=== PATIENT | male | born 1995 | race Caucasian/White ===

== ENCOUNTER → 2018-03-09 | Outpatient (REF) | payer BC ==
[~2018-03-09] MED LIST: ABX FOR ACNE PO
[2018-03-09 14:22] LABS: PLATELET COUNT, AUTOMATED 232 K/uL (150-450)
== END ==
PROVIDERS: ATTEND Physician Assistant Medical
DX: R10.9 Unspecified abdominal pain (principal); R19.7 Diarrhea, unspecified
CPT/HCPCS: 82040; 82247; 82310; 82374; 82435; 82565; 82947; 84075; 84132; 84155; 84295; 84450; 84460; 84520; 85025

== ENCOUNTER 2018-03-13 13:32 | Emergency (ER) | payer BC ==
[2018-03-13 13:36] VITALS: BP 113/65
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
--- NOTE | 2018-03-13 14:37 | RADIOLOGY IMAGING REPORT ---
FACILITY: [facility] [place] PATIENT NAME: Elmer Neil : 1995 MR: [id number] V: [id number] EXAM DATE: ORDERING PHYSICIAN: JORDON ALEXANDER TECHNOLOGIST: Location: [facility] [place] Patient: Elmer Neil : 1995 Visit/Account:[id number] Date of Sevice: 03/13/2018 EXAMINATION: Left wrist 3 views HISTORY: Pain. COMPARISON: None. FINDINGS: No evidence of acute fracture or dislocation about the left wrist. Normal alignment. Joint spaces a re preserved. Soft tissues are unremarkable. IMPRESSION: Negative left wrist. Report Dictated By: Felix Signh MD at 03/13/2018 2:32 PM Report E-Signed By: Felix Singh MD at 03/13/2018 2:33 PM WSN:[id number]
== END 2018-03-13 15:07 | disposition home or self-care (01) ==
LOC: ER 13:39
DX: S63.502A Unspecified sprain of left wrist, initial encounter (principal); X58.XXXA Exposure to other specified factors, initial encounter
CPT/HCPCS: 99284

== ENCOUNTER 2018-04-02 07:46 | Emergency (ER) | payer BC ==
[2018-04-02 07:49] VITALS: BP 102/42
--- NOTE | 2018-04-02 07:51 | ER Report ---
History and Physical Time Seen By MD: 07:51 Hx. of Stated Complaint: INJURED LEFT WRIST 3 WEEKS AGO - REPORTS PAIN IS STILL PRESENT AND HAS NOT BEEN ABLE TO FOLLOW UP WITH ORTHO HPI/ROS CHIEF COMPLAINT: wrist pain, and hip pain. HISTORY OF PRESENT ILLNESS: This is a 23 year old male. He had a wrist injury of left wrist about 3 weeks ago. Still with pain despite using a splint. Went to orthopedic surgery, but his [place] insurance will not cover anything out here in [place]. He was told that if his wrist did not get better, then having an MRI would be the next step. He will not be returning home to [place] till July. He is unable to see physical therapy or other providers because of the insurance problems. He is in [facility], and increased activity has been causing increased problems. Wrist sometimes has numbness in the ulnar side and 5th finger. Has pain with extremes of flexion or extension. Having some pain in the right hip flexors from increased running recently and was wondering what could be done for that. No fevers or chills. No problems with bowel or bladder function. No rashes or bruising. Allergies: Coded Allergies: No Known Drug Allergies (Unverified , 04/02/18) Home Meds No Active Prescriptions or Reported Meds Reviewed Nurses Notes: Yes Hx Smoking: No Hx Substance Use Disorder: No Constitutional Vital Sign - Last 24 Hours 04/02/18 07:49 Temp 98.6 Pulse 76 Resp 18 B/P (MAP) 102/42 Pulse Ox 94 O2 Delivery Room Air Physical Exam General appearance: alert, no distress. left wrist: There is no asymmetry. There is no significant swelling. There is no obvious deformity. No tenderness over the anatomic snuff box. No tenderness over the ulnar styloid. No tenderness over the metacarpals. Pain mainly with range of motion Hips have some pain in right hip flexors and somewhat into posterior hip muscles. No pain in the leg. Neurologic exam: The patient has normal sensation distal to the injury. Active range of motion is intact, but with pain with wrist motion. No weakness noted. Vascular exam: Normal pulses and capillary refill. Skin: No skin breakdown. DIFFERENTIAL DIAGNOSIS: After history and physical exam, differential diagnosis was considered for wrist injury including sprain, fracture, dislocation and soft tissue injury. Medical Decision Making ED Course/Re-evaluation ED Course MRI pending and reading is taking a long time. Discussed with the patient that I would call them back with the result when available later today. Continued use of the splint and conservative measures until results are available. Decision to Disposition Date: Apr 02, 2018 Decision to Disposition Time: 11:52 Depart Departure Latest Vital Signs Vital Signs Date Time Temp Pulse Resp B/P (MAP) Pulse Ox O2 Delivery O2 Flow Rate FiO2 04/02/18 07:49 98.6 76 18 102/42 94 Room Air Impression: Primary Impression: Left wrist sprain Condition: Condition Unchanged Disposition: HOME OR SELF-CARE New Scripts No Active Prescriptions or Reported Meds Patient Instructions: Wrist Sprain (ED) Additional Instructions: Results of the MRI done today should be available later today and the doctor will call with results. Keep wearing the splint for now. No other changes. Problem Qualifiers Primary Impression: Left wrist sprain Encounter type: subsequent encounter Qualified Codes: S63.502D - Unspecified sprain of left wrist, subsequent encounter AURELIO BEAUCHAMP MD Apr 02, 2018 07:51
--- NOTE | 2018-04-02 12:11 | RADIOLOGY IMAGING REPORT ---
FACILITY: [facility] - [place] PATIENT NAME: Elmer Neil : 1995 MR: [id number] V: [id number] EXAM DATE: ORDERING PHYSICIAN: AURELIO BEAUCHAMP TECHNOLOGIST: Location: [facility] [place] Patient: Elmer Neil : 1995 Visit/Account:[id number] Date of Sevice: 04/02/2018 MRI Left Wrist Indication: Wrist injury. Continued pain. Comparison: None available Technique: Multisequence multiplanar MR images of the left wrist were obtained without IV contrast. FINDINGS: Bones and marrow: No acute or aggressive osseous abnormality. Minimal cystic changes seen within the lunate bone and the triquetrum. Effusion: No significant joint effusions are present. Intrinsic ligaments: Scapholunate and lunotriquetral ligaments are intact, and demonstrate no signifi cant pathology. TFCC: There is a focal full-thickness tear near the radial attachment of the triangular fibrocartilage seen on image 10 of the coronal series as well as partial tearing the foveal attachment and ulnar styloid attachments. Myotendinous structures: All extensor tendons along the dorsal aspect of the wrist display normal sig nal and morphology characteristics. No evidence of significant tendinopathy or tenosynovitis. Carpal tunnel: All tendons within the carpal tunnel display normal signal and morphology characteristics. Median nerve displays normal signal and morphology characteristics. Miscellaneous: No ganglion cysts are identified about the wrist. Contents of Guyon's canal are unremarkable. IMPRESSION: 1. Peripheral tearing triangular fibrocartilage as described above as well as focal full-thickness te ar near the radial attachment of the TFC. 2. No acute osseous abnormality. Report Dictated By: Gus Rodriguez MD at 04/02/2018 12:04 PM Report E-Signed By: Gus Rodriguez MD at 04/02/2018 12:07 PM WSN:[id number]
== END 2018-04-02 11:56 | disposition home or self-care (01) ==
LOC: ER 07:49
DX: S63.502D Unspecified sprain of left wrist, subsequent encounter (principal)
CPT/HCPCS: 99284

== ENCOUNTER 2018-08-06 11:21 | Emergency (ER) | payer BC ==
--- NOTE | 2018-08-06 11:36 | ER Report ---
History and Physical Time Seen By MD: 11:36 HPI/ROS CHIEF COMPLAINT: Left testicle discomfort HISTORY OF PRESENT ILLNESS: 23-year-old male patient presents to emergency room with complaint of left testicle discomfort. Patient states that he feels as if his testicle is hanging lower than it does normally. Patient states that he has been having discomfort for the past 4-5 days. He denies having any fevers or chills. Patient states he is currently sexually active with the same partner that he's had for the past 3 years. Patient denies any other sexual partners. He denies any pain with urination. Patient states that he has no nausea, vomiting or diarrhea. Patient states that he never has any pain that is extreme and then resolves spontaneously. Patient has not taken any medication for this. Patient had a previous experience with right testicular discomfort approximately 6 months ago, at that time he had a full workup including lab work, urinalysis and ultrasound which was unremarkable. REVIEW OF SYSTEMS: Respiratory: No cough, no dyspnea. Cardiovascular: No chest pain, no palpitations. Gastrointestinal: No vomiting, no abdominal pain. Musculoskeletal: No back pain. Allergies: Coded Allergies: No Known Drug Allergies (Unverified , 08/06/18) Home Meds Active Scripts Doxycycline Hyclate (DOXYCYCLINE HYCLATE) 100 Mg Tablet, 100 MG PO BID, #20 TAB Prov:TEOFILO MARK 08/06/18 Past Medical/Surgical History Patient has no pertinent medical or surgical history. Reviewed Nurses Notes: Yes Hx Smoking: No Hx Substance Use Disorder: No Constitutional Vital Sign - Last 24 Hours 08/06/18 08/06/18 08/06/18 08/06/18 11:21 11:31 11:38 11:51 Temp 98.6 Pulse 110 109 100 Resp 12 B/P (MAP) 129/78 (95) 129/78 Pulse Ox 94 95 96 O2 Delivery Room Air 08/06/18 08/06/18 08/06/18 08/06/18 12:00 12:21 12:30 12:35 Pulse 91 99 B/P (MAP) 126/84 (98) 123/80 (94) Pulse Ox 93 98 08/06/18 08/06/18 08/06/18 13:00 13:05 13:30 Pulse 99 B/P (MAP) 119/67 (84) 137/86 (103) Pulse Ox 95 Physical Exam General Appearance: The patient is alert, has no immediate need for airway protection and no current signs of toxicity. Respiratory: Chest is non tender, lungs are clear to auscultation. Cardiac: regular rate and rhythm Gastrointestinal: Abdomen is soft and non tender, no masses, bowel sounds norm al. : Patient has tenderness to the left testicle at the epididymis, patient did have some tenderness to the right testicle at the proximal end. Patient did have left-sided of adenopathy. Musculoskeletal: Neck: Neck is supple and non tender. Extremities have full range of motion and are non tender. Skin: No rashes or lesions. DIFFERENTIAL DIAGNOSIS: After history and physical exam differential diagnosis was considered for testicular pain including but not limited to epididymitis, orchitis, referred pain from kidney stone, inguinal hernia, and torsion of the testicle. Medical Decision Making Data Points Result Diagram: 08/06/18 1207 08/06/18 1207 Laboratory Hematology Test 08/06/18 00:00 08/06/18 12:07 08/06/18 12:14 Red Blood Count 5.43 M/uL (4.00-5.60) Mean Corpuscular Volume 83.1 fL (80.0-96.0) Mean Corpuscular Hemoglobin 28.0 pg (26.0-33.0) Mean Corpuscular Hemoglobin Concent 33.7 g/dL (32.0-36.0) Red Cell Distribution Width 13.1 % (11.5-14.5) Mean Platelet Volume 7.6 fL (7.2-11.1) Neutrophils (%) (Auto) 61.7 % (39.4-72.5) Lymphocytes (%) (Auto) 31.4 % (17.6-49.6) Monocytes (%) (Auto) 4.9 % (4.1-12.4) Eosinophils (%) (Auto) 1.5 % (0.4-6.7) Basophils (%) (Auto) 0.5 % (0.3-1.4) Nucleated RBC Relative Count (auto) 0.1 /100WBC Neutrophils # (Auto) 3.0 K/uL (2.0-7.4) Lymphocytes # (Auto) 1.5 K/uL (1.3-3.6) Monocytes # (Auto) 0.2 K/uL (0.3-1.0) Eosinophils # (Auto) 0.1 K/uL (0.0-0.5) Basophils # (Auto) 0.0 K/uL (0.0-0.1) Nucleated RBC Absolute Count (auto) 0.00 K/uL Sodium Level 141 mmol/L (137-145) Potassium Level 3.8 mmol/L (3.5-5.0) Chloride Level 103 mmol/L (98-107) Carbon Dioxide Level 28 mmol/L (22-30) Blood Urea Nitrogen 16 mg/dl (9-21) Creatinine 1.10 mg/dl (0.66-1.25) Glomerular Filtration Rate Calc > 60.0 Random Glucose 104 mg/dl (75-110) Calcium Level 9.8 mg/dl (8.4-10.2) Total Bilirubin 0.8 mg/dl (0.2-1.3) Aspartate Amino Transf (AST/SGOT) 28 U/L (0-35) Alanine Aminotransferase (ALT/SGPT) 30 U/L (0-56) Alkaline Phosphatase 62 U/L (0-126) C-Reactive Protein < 0.5 mg/dl (<1.0) Total Protein 7.9 g/dl (6.3-8.2) Albumin 4.7 g/dl (3.5-5.0) Urine Color Yellow Urine Clarity Clear Urine pH 6.0 pH (4.8-9.5) Urine Specific Nolan 1.025 Urine Protein Negative mg/dL (NEGATIVE) Urine Glucose (UA) Negative mg/dL (NEGATIVE) Urine Ketones Negative mg/dL (NEGATIVE) Urine Blood Negative (NEGATIVE) Urine Nitrite Negative (NEGATIVE) Urine Bilirubin Negative (NEGATIVE) Urine Urobilinogen Negative mg/dL (0.2-1.9) Urine Leukocyte Esterase Negative (NEGATIVE) Urine RBC None /HPF (0-2/HPF) Urine WBC 1 /HPF (0-5/HPF) Urine Squamous Epithelial Cells Few /LPF (</=FEW) Urine Bacteria Negative /HPF (NONE-FEW) Urine Mucus Few /HPF (NONE-FEW) Chemistry Test 08/06/18 00:00 08/06/18 12:07 08/06/18 12:14 White Blood Count 4.8 k/uL (4.5-11.0) Red Blood Count 5.43 M/uL (4.00-5.60) Hemoglobin 15.2 g/dL (14.0-18.0) Hematocrit 45.1 % (42.0-52.0) Mean Corpuscular Volume 83.1 fL (80.0-96.0) Mean Corpuscular Hemoglobin 28.0 pg (26.0-33.0) Mean Corpuscular Hemoglobin Concent 33.7 g/dL (32.0-36.0) Red Cell Distribution Width 13.1 % (11.5-14.5) Platelet Count 227 K/uL (150-450) Mean Platelet Volume 7.6 fL (7.2-11.1) Neutrophils (%) (Auto) 61.7 % (39.4-72.5) Lymphocytes (%) (Auto) 31.4 % (17.6-49.6) Monocytes (%) (Auto) 4.9 % (4.1-12.4) Eosinophils (%) (Auto) 1.5 % (0.4-6.7) Basophils (%) (Auto) 0.5 % (0.3-1.4) Nucleated RBC Relative Count (auto) 0.1 /100WBC Neutrophils # (Auto) 3.0 K/uL (2.0-7.4) Lymphocytes # (Auto) 1.5 K/uL (1.3-3.6) Monocytes # (Auto) 0.2 K/uL (0.3-1.0) Eosinophils # (Auto) 0.1 K/uL (0.0-0.5) Basophils # (Auto) 0.0 K/uL (0.0-0.1) Nucleated RBC Absolute Count (auto) 0.00 K/uL Glomerular Filtration Rate Calc > 60.0 Calcium Level 9.8 mg/dl (8.4-10.2) Total Bilirubin 0.8 mg/dl (0.2-1.3) Aspartate Amino Transf (AST/SGOT) 28 U/L (0-35) Alanine Aminotransferase (ALT/SGPT) 30 U/L (0-56) Alkaline Phosphatase 62 U/L (0-126) C-Reactive Protein < 0.5 mg/dl (<1.0) Total Protein 7.9 g/dl (6.3-8.2) Albumin 4.7 g/dl (3.5-5.0) Urine Color Yellow Urine Clarity Clear Urine pH 6.0 pH (4.8-9.5) Urine Specific Nolan 1.025 Urine Protein Negative mg/dL (NEGATIVE) Urine Glucose (UA) Negative mg/dL (NEGATIVE) Urine Ketones Negative mg/dL (NEGATIVE) Urine Blood Negative (NEGATIVE) Urine Nitrite Negative (NEGATIVE) Urine Bilirubin Negative (NEGATIVE) Urine Urobilinogen Negative mg/dL (0.2-1.9) Urine Leukocyte Esterase Negative (NEGATIVE) Urine RBC None /HPF (0-2/HPF) Urine WBC 1 /HPF (0-5/HPF) Urine Squamous Epithelial Cells Few /LPF (</=FEW) Urine Bacteria Negative /HPF (NONE-FEW) Urine Mucus Few /HPF (NONE-FEW) Urinalysis Test 08/06/18 12:14 Urine Color Yellow Urine Clarity Clear Urine pH 6.0 pH (4.8-9.5) Urine Specific Nolan 1.025 Urine Protein Negative mg/dL (NEGATIVE) Urine Glucose (UA) Negative mg/dL (NEGATIVE) Urine Ketones Negative mg/dL (NEGATIVE) Urine Blood Negative (NEGATIVE) Urine Nitrite Negative (NEGATIVE) Urine Bilirubin Negative (NEGATIVE) Urine Urobilinogen Negative mg/dL (0.2-1.9) Urine Leukocyte Esterase Negative (NEGATIVE) Urine RBC None /HPF (0-2/HPF) Urine WBC 1 /HPF (0-5/HPF) Urine Squamous Epithelial Cells Few /LPF (</=FEW) Urine Bacteria Negative /HPF (NONE-FEW) Urine Mucus Few /HPF (NONE-FEW) EKG/Imaging Imaging SCROTAL ULTRASOUND INDICATION: Left testicular pain. COMPARISON: None available. FINDINGS: Right testicle measures 5.0 x 2.4 x 3.2 cm in cc, AP, and transverse dimensions respectively. There is normal arterial and venous blood flow. Small right hydrocele No varicocele identified. The right epididymal head measures 0.9 cm. Normal blood flow. No focal normality. Left testicle measures 4.7 x 2.3 x 3.2 cm in cc, AP, and transverse dimensions respectively. There is normal arterial and venous blood flow. Small left hydrocele. No varicocele identified. The left epididymal head measures 0.6 cm. Normal blood flow. No focal abnormality. The bilateral testicles appear homogenous in echogenicity. IMPRESSION: 1. Normal blood flow within the bilateral testicles with no focal abnormality. 2. Small bilateral hydrocele. Report Dictated By: Emmanuel Olsen at 08/06/2018 1:18 PM Report E-Signed By: Emmanuel Olsen at 08/06/2018 1:22 PM ED Course/Re-evaluation ED Course Patient was medicated in exam room, history and physical were obtained. Differential diagnoses were considered. On examination lungs are clear, heart is regular, abdomen is soft and nontender. Patient does have tenderness to the epididymis of the left testicle as well as tenderness to the proximal end of the right testicle. A CBC, CMP, urinalysis were obtained. Those were unremarkable. A chlamydia and gonorrhea screening were done. We will contact him with results if they're positive. An ultrasound of the testes were done. Results were unremarkable except for small bilateral hydroceles. I do not believe that those are likely causing the pain, I believe that he does have an underlying infection which is causing pain as well as the enlarged lymph nodes in the left inguinal region. However ahead and treat him with 1 g of Rocephin IV here in the emergency room as well as doxycycline 100 mg twice a day for the next 10 days. I would like him follow-up with urology for reevaluation to make sure that he has resolution of his symptoms. His risk for that as he complained of having symptoms to the right testicle earlier this year which resolved spontaneously. Patient verbalized understanding and agreement with plan. Decision to Disposition Date: Aug 06, 2018 Decision to Disposition Time: 13:38 Depart Departure Latest Vital Signs Vital Signs Date Time Temp Pulse Resp B/P (MAP) Pulse Ox O2 Delivery O2 Flow Rate FiO2 08/06/18 13:30 137/86 (103) 08/06/18 13:05 99 95 08/06/18 11:38 98.6 12 Room Air Impression: Primary Impression: Epididymitis Condition: Improved Disposition: HOME OR SELF-CARE Referrals: GRECIA RIVERO MD, LYLE MD UHLMAN, ERIC J MD New Scripts Doxycycline Hyclate (DOXYCYCLINE HYCLATE) 100 Mg Tablet 100 MG PO BID, #20 TAB Prov: TEOFILO MARK IZABELA 08/06/18 Patient Instructions: Epididymitis (ED) Additional Instructions: Increase fluid intake. Get plenty of rest. Follow up with urology, call this afternoon to make an appointment. Wear more supportive underwear when exercising. Return to the ER if condition worsens. Limit activity by pain. TEOFILO MARK Aug 06, 2018 11:36
[2018-08-06] MEDS ORDERED: NS(*) 0.9% 1000 ML BAG 1,000 ML IV ONE (11:50)
[2018-08-06 12:22] LABS: PLATELET COUNT, AUTOMATED 227 K/uL (150-450)
--- NOTE | 2018-08-06 13:26 | RADIOLOGY IMAGING REPORT ---
FACILITY: [facility] - [place] PATIENT NAME: Elmer Neil : 1995 MR: [id number] V: [id number] EXAM DATE: ORDERING PHYSICIAN: TEOFILO MARK TECHNOLOGIST: [place] [facility] [place] Patient: Elmer Neil : 1995 Visit/Account:[id number] Date of Sevice: 08/06/2018 SCROTAL ULTRASOUND INDICATION: Left testicular pain. COMPARISON: None available. FINDINGS: Right testicle measures 5.0 x 2.4 x 3.2 cm in cc, AP, and transverse dimensions respectively. There is normal arterial and venous blood flow. Small right hydrocele No varicocele identified. The right epididymal head measures 0.9 cm. Normal blood flow. No focal normality. Left testicle measures 4.7 x 2.3 x 3.2 cm in cc, AP, and transverse dimensions respectively. There is normal arterial and venous blood flow. Small left hydrocele. No varicocele identified. The left epididymal head measures 0.6 cm. Normal blood flow. No focal abnormality. The bilateral testicles appear homogenous in echogenicity. IMPRESSION: 1. Normal blood flow within the bilateral testicles with no focal abnormality. 2. Small bilateral hydrocele. Report Dictated By: Emmanuel Olsen at 08/06/2018 1:18 PM Report E-Signed By: Emmanuel Olsen at 08/06/2018 1:22 PM [id number]
[2018-08-06 13:30] VITALS: BP 137/86
[2018-08-06] MEDS ORDERED: DOXY-179 PO (13:41)
[2018-08-07] MEDS ORDERED: cefTRIAXone 1 GM VIAL IVP SCH (09:00)
== END 2018-08-06 14:10 | disposition home or self-care (01) ==
LOC: ER 11:31
DX: N45.1 Epididymitis (principal)
CPT/HCPCS: 76870; 81001; 85025; 86140; 87491; 87591; 96361; 96374; 99284; J0696; J7030; 82040; 82247; 82310; 82374; 82435; 82565; 82947; 84075; 84132; 84155; 84295; 84450; 84460; 84520